=== PATIENT | male | born 1965 | race Caucasian/White ===

== ENCOUNTER 2016-04-03 19:57 | Emergency (ER) | payer OTHER ==
[2016-04-03] MEDS ORDERED: KETOROLAC TROMETHAMINE 30 MG/ML VIAL IM ONE (22:38)
[2016-04-03] MEDS ORDERED: ACETAMINOPHEN 500 MG TABLET PO ONE (22:38)
[2016-04-03 22:39] VITALS: BP 146/120
[2016-04-03] MEDS ORDERED: CYCLOBENZAPRINE HCL 10 MG TABLET PO ONE (22:40)
[2016-04-03] MEDS ORDERED: KETOROLAC TROMETHAMINE 30 MG/ML VIAL ONE (22:47)
[2016-04-03] MEDS ORDERED: CYCLOBENZAPRINE HCL 10 MG TABLET ONE (22:47)
--- NOTE | 2016-04-03 22:53 | ERNOTE ---
Back Pain ER HPI Date of Service: 04/03/16 Source: patient Immunizations: IMMUNIZATION HX Immunizations Up to Date No History of Influenza Vaccine No Hx Pneumococcal Vaccination No Allergies/Adverse Reactions: Allergies No Known Drug Allergies Allergy (Verified 04/03/16 20:23) Home Medications: HOME MEDICATIONS Cyclobenzaprine HCl [Flexeril] 10 mg PO TID PRN #30 tab 04/03/16 [Last Taken Unknown] Lidocaine [Lidoderm 5%] 1 patch TP DAILY PRN #10 adh..patch 04/03/16 [Last Taken Unknown] Metoprolol Succinate [Toprol Xl] 50 mg PO DAILY 04/03/16 [Last Taken Unknown] Naproxen [Naprosyn] 500 mg PO BID PRN #20 tab 04/03/16 [Last Taken Unknown] Narrative: while at work he picked up a bucket and noticed lower back pain. As time went on the lower back continued to tighten and is painful. Denies any weakness in the lower extremities, and denies any urinary bladder retention. No medications were taken prior to being seen in the ED. He has had similar back pain in the past. Timing: Reports: constant Quality/Severity: Reports: moderate Location of pain: Reports: lower back Activities at Onset: Reports: activity Recent Injury?: Reports: yes Possible Precipitating Factor: Reports: lifting Modifying Factors - (Improves): Reports: nothing Modifying Factors - (Worsens): Reports: movement flexion Prior Treament: Reports: similar symptoms before Review of Systems - Review of Systems Constitutional: Present: no symptoms reported EYE: Present: no symptoms reported ENT: Present: no symptoms reported Respiratory: Present: no symptoms reported Cardiology: Present: no symptoms reported Gastrointestinal/Abdominal: Present: no symptoms reported Genitourinary: Present: no symptoms reported Musculoskeletal: Present: no symptoms reported Skin: Present: no symptoms reported Neurological: Present: no symptoms reported Endocrine: Present: no symptoms reported Hematologic/Lymphatic: Present: no symptoms reported - Patient's Past Medical History Patient History - Medical: Anxiety, Depression Patient History - Cardiac/Respiratory: Hypertension, Hyperlipidemia Patient History - Cancer: No Hx of Cancer Patient History - Surgical Procedures: No surgical history Patient History - Other: None - Social History Living Situations: home Smoking Status: Former smoker Have you smoked in the past 12 months: No Do you dip or chew tobacco: Yes Alcohol Use: occasionally Drug Use: none - Immunizations Immunizations Up to Date: No Hx Pneumococcal Vaccination: No History of Influenza Vaccine: No Physical Exam - Physical Exam General Appearance: Present: no apparent distress Eye Exam: Normal inspection: bilateral Ears, Nose, Throat: Present: normal ENT inspection Neck: Present: normal inspection Respiratory: Present: no respiratory distress Cardiovascular/Chest: Present: regular rate, rhythm Gastrointestinal/Abdominal: Present: nontender Extremity Exam: Present: normal inspection, non-tender Neurological Exam: Present: alert, oriented, 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 Vital Signs: Vital Signs 04/03/16 04/03/16 20:18 22:38 Temperature 36.6 C Pulse Rate 79 84 Respiratory 18 16 Rate Blood Pressure 154/126 146/120 O2 Sat by Pulse 96 95 Oximetry - Progress/Reassessment Chief Complaint: Back Pain Progress Note-Subjective: 04/04/16 06:03 Given Torodol, Flexeril and Tylenol. Departure Clinical Impression: Acute back pain - Departure Disposition: Home self-care Condition: Good Instructions: Back Pain, Adult Print Language: Icelandic Referrals: Adelfo Devries MD [Primary Care Provider] - Prescriptions: Cyclobenzaprine HCl [Flexeril] 10 mg PO TID PRN #30 tab PRN Reason: MUSCLE SPASMS Lidocaine [Lidoderm 5%] 1 patch TP DAILY PRN #10 adh..patch PRN Reason: pain Naproxen [Naprosyn] 500 mg PO BID PRN #20 tab PRN Reason: Pain
== END 2016-04-03 23:20 | disposition home or self-care (01) ==
LOC: ER 19:57
DX: M54.9 Dorsalgia, unspecified (principal); Z87.891 Personal history of nicotine dependence; I10 Essential (primary) hypertension

== ENCOUNTER 2016-04-05 11:01 | Emergency (ER) | payer OTHER ==
--- NOTE | 2016-04-05 11:38 | ERNOTE ---
Back Pain ER HPI Date of Service: 04/05/16 Presenting Symptoms: injury/pain to back Time Seen by Provider: 04/05/16 11:17 Source: patient Exam Limitations: no limitations Immunizations: IMMUNIZATION HX Immunizations Up to Date No History of Influenza Vaccine No Hx Pneumococcal Vaccination No Allergies/Adverse Reactions: Allergies No Known Drug Allergies Allergy (Verified 04/05/16 11:15) Home Medications: HOME MEDICATIONS Cyclobenzaprine HCl [Flexeril] 10 mg PO TID PRN #30 tab 04/03/16 [Last Taken Unknown] Lidocaine [Lidoderm 5%] 1 patch TP DAILY PRN #10 adh..patch 04/03/16 [Last Taken Unknown] Metoprolol Succinate [Toprol Xl] 50 mg PO DAILY 04/03/16 [Last Taken Unknown] Naproxen [Naprosyn] 500 mg PO BID PRN #20 tab 04/03/16 [Last Taken Unknown] Narrative: Patient presents for an extension of his work note. He relates he was seen here wednesday night. He was carrying an object at work and felt a pop in his back. Had bilateral low back pain. Has had pains here before. Seen here. Given meds but did not fill the lidocaine patches. He denies radicular pain. No loss of bowel or bladder control. No N/T/W. Pain bilateral low back worse with bending, turning, etc. No urinary Sx. He went to work today because his work not was up but could not work d/t pain. no fever. No abdominal pain. Timing: Reports: constant Quality/Severity: Reports: moderate Location of pain: Reports: lower back Activities at Onset: Reports: other - lifting/carrying Recent Injury?: Reports: yes Possible Precipitating Factor: Reports: lifting Modifying Factors - (Improves): Reports: other - rest Modifying Factors - (Worsens): Reports: movement to right Associated Symptoms: Denies: fever/chills, constipation/incontinence, problems urinating, numbess/weakness in legs Prior Treament: Reports: recently seen Review of Systems - Review of Systems Constitutional: Absent: fever Respiratory: Present: no symptoms reported Cardiology: Present: no symptoms reported Gastrointestinal/Abdominal: Present: no symptoms reported Neurological: Absent: weakness, numbness - Patient's Past Medical History Patient History - Medical: Anxiety, Depression Patient History - Cardiac/Respiratory: Hypertension, Hyperlipidemia Patient History - Cancer: No Hx of Cancer Patient History - Surgical Procedures: No surgical history Patient History - Other: None - Social History Living Situations: home Alcohol Use: occasionally Drug Use: none - Immunizations Immunizations Up to Date: No Hx Pneumococcal Vaccination: No History of Influenza Vaccine: No Physical Exam - Physical Exam General Appearance: Present: alert, no apparent distress Eye Exam: Normal inspection: bilateral, PERRL: bilateral Ears, Nose, Throat: Present: normal ENT inspection Neck: Present: normal inspection Respiratory: Present: no respiratory distress, normal breath sounds Cardiovascular/Chest: Present: regular rate, rhythm Gastrointestinal/Abdominal: Present: normal bowel sounds, nontender, soft Back Exam: Present: other - bilateral paraspinal muscular tendenress lumbar spine. No vertebral tenderness. Palpation of the muscular completely reproduces his pain. 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 Full LE strength. Equal and symmetric dorsi and plantar flexion strength. No LE weakness or ssensory loss. Gait stable. no neuro deficit or cauda equina syndrome.. Absent: motor weakness Skin Exam: Absent: skin rash ED Progress - Vital Signs Patient's Vital Signs:: I have reviewed the patient's vital signs. Vital Signs: Vital Signs 04/05/16 11:13 Temperature 36.8 C Pulse Rate 71 Respiratory 14 Rate Blood Pressure 186/106 O2 Sat by Pulse 99 Oximetry - Progress/Reassessment Chief Complaint: Back Pain Progress Note-Subjective: 04/05/16 11:35 No radiculopathy. No neuro deficits no cauda equina syndrome. Departure Clinical Impression: Low back pain - Departure Disposition: Home self-care Condition: Stable Instructions: Back Pain, Adult Additional Instructions: Call Occupational health for a follow-up appointment wednesday. Rest. Medication as directed. Return for loss of bowel or bladder control, numbness, tingling, weakness, fever or if your condition worsens or changes in any way.
[2016-04-05 11:41] VITALS: BP 157/91
== END 2016-04-05 11:44 | disposition home or self-care (01) ==
LOC: ER 11:01
DX: M54.5 Low back pain (principal)